=== PATIENT | female | born 1955 | race Caucasian/White ===

== ENCOUNTER 2018-08-10 09:18 | Outpatient (REF) | payer OTHER, SELFPAY ==
--- NOTE | 2018-08-10 08:45 | PAPFT_PTH ---
PATIENT: Farhana Alvarez LOC: [facility] U#:[id number] AGE/SX: 63/F ROOM: RE08/10/[address]: Reema Foley : 1955 BED: DIS: 08/10/2018 SPEC #: [id number] RECD: 08/11/18 12:48 STATUS: MAGGIE REQ #: [id number] TORIN: 08/10/18 08:[address]: Reema Foley DEPT: [facility] Cytology RECD BY: Sowmya Arenas ENTERED: 08/11/18 12:48 SP TYPE: PAPFT OTHR DR: Kiana Collins Tissues: 1 - CX/ENDOCX FOR PAP SMEARS Procedures: PAP THIN PREP/[facility] Screening HPV DNA PROBE Comments: [id number]
== END 2018-08-10 09:38 ==
LOC: NCHCN 09:18
PROVIDERS: PCP Nurse Practitioner Family; Visit Provider Nurse Practitioner Family
DX: Z12.4 Encounter for screening for malignant neoplasm of cervix (principal); Z01.419 Encounter for gynecological examination (general) (routine) without abnormal findings; Z11.51 Encounter for screening for human papillomavirus (HPV)
CPT/HCPCS: 88142; 87624

== ENCOUNTER 2018-08-12 10:14 | Outpatient (REF) | payer OTHER, SELFPAY ==
[2018-08-12 21:08] LABS: Anion Gap 9.1 mmol/L (3-11); BUN 22 mg/dL (7-18); CO2 26.9 mmol/L (21.0-32.0); CREATININE 1.03 mg/dL (0.55-1.02); Calcium 9.4 mg/dL (8.5-10.1); Chloride 104 mmol/L (98-107); Cholesterol 186 mg/dL (50-200); Estimated GFR 53.95 (mL/min/1.73m2); Glucose 96 mg/dL (70-100); HDL Cholesterol 53 mg/dL (40-60); LDL CHOLESTEROL 118 mg/dL (<100); Potassium 4.3 mmol/L (3.5-5.1); Sodium 140 mmol/L (136-145); Triglyceride 80 mg/dL (30-150)
== END 2018-08-12 10:34 ==
LOC: NCHCN 10:14
PROVIDERS: PCP Nurse Practitioner Family; Visit Provider Nurse Practitioner Family
DX: Z00.00 Encounter for general adult medical examination without abnormal findings (principal); Z13.228 Encounter for screening for other metabolic disorders; Z13.220 Encounter for screening for lipoid disorders
CPT/HCPCS: 80048; 80061; 83721

== ENCOUNTER 2018-08-14 01:23 | Outpatient (CLI) | payer OTHER, SELFPAY ==
--- NOTE | 2018-08-14 14:55 | DI.CTLCSR_ITS ---
SYMPTOM/DIAGNOSIS: [facility], Z00.00, FORMER SMOKER CHEST CT LOW DOSE LUNG CANCER SCREENING: A low dose screening protocol was performed. There is severe underlying emphysematous changes. There are two areas, one in each upper lobe, which have a nodular appearance but appear to be at branch points of upper lobe vessels. No suspicious pulmonary nodules are identified. Heart size is normal. Coronary artery calcifications are seen. Degenerative changes are seen in the spine. IMPRESSION: Lung rads, Category 2. Follow up in one year is suggested. Lung-RAD Category: Lung RADS Category 2- Benign Appearance/Behavior
== END 2018-08-14 01:43 ==
PROVIDERS: PCP Nurse Practitioner Family; Visit Provider Nurse Practitioner Family
DX: Z12.2 Encounter for screening for malignant neoplasm of respiratory organs (principal); J43.9 Emphysema, unspecified; Z87.891 Personal history of nicotine dependence; Z00.00 Encounter for general adult medical examination without abnormal findings
CPT/HCPCS: G0297

== ENCOUNTER 2019-02-18 16:59 | Outpatient (REF) | payer OTHER, SELFPAY | END 2019-02-18 17:19 | LOC: NCHCN 16:59 | PROVIDERS: PCP Family Medicine; Visit Provider Family Medicine | DX: R30.0 Dysuria (principal) | CPT/HCPCS: 87077; 87086; 87186 ==

== ENCOUNTER 2019-02-24 14:45 | Outpatient (REF) | payer OTHER, SELFPAY | END 2019-02-24 15:05 | LOC: NCHCN 14:45 | PROVIDERS: PCP Family Medicine; Visit Provider Nurse Practitioner Family | DX: R30.0 Dysuria (principal) | CPT/HCPCS: 87086 ==

== ENCOUNTER 2019-06-30 15:06 | Outpatient (REF) | payer OTHER, SELFPAY ==
[2019-06-30 20:25] LABS: Anion Gap 10.9 mmol/L (3-11); BUN 16 mg/dL (7-18); CO2 25.1 mmol/L (21.0-32.0); CREATININE 0.93 mg/dL (0.55-1.02); Calcium 8.9 mg/dL (8.5-10.1); Chloride 106 mmol/L (98-107); Glucose 100 mg/dL (70-100); HCT 40.2 % (36.0-46.0); HGB 13.8 g/dL (12.0-15.5); Mean Corp. HGB Concentration 34.3 g/dL (32.0-36.0); Mean Corpuscular Hemoglobin 30.6 pg (27.0-33.0); Mean Corpuscular Volume 89.1 fL (80-95); Mean Platelet Volume 9.8 fL (8.0-11.0); NT-proBNP 78 pg/mL; Platelet Count 226 x1000/uL (130-400); RBC 4.51 m/cumm (4.00-5.20); RBC Distribution Width 13.9 % (11.7-14.6); Sodium 142 mmol/L (136-145); TSH (W/Ref FT4) 3.84 uIU/mL (0.36-3.74); White Blood Cell Count 5.69 k/cumm (4.4-10.8)
== END 2019-06-30 15:26 ==
LOC: NCHCN 15:06
PROVIDERS: PCP Family Medicine; Visit Provider Nurse Practitioner Family
DX: R06.09 Other forms of dyspnea (principal); J44.9 Chronic obstructive pulmonary disease, unspecified
CPT/HCPCS: 80048; 85027; 83880; 84439; 84443

== ENCOUNTER 2019-07-01 07:03 | Outpatient (CLI) | payer OTHER, SELFPAY ==
--- NOTE | 2019-07-01 08:50 | DI.RAD_ITS ---
EXAM: XR CHEST 2V PA LATERAL CLINICAL HISTORY: INCREASED FRASER, R06.09, NEW COUGH X 3 WKS, R05, H/O EMPHYSEMA, ? INFECTIOUS PROCESS FINDINGS: The heart is at the upper limits normal in size. There is pleural blunting posteriorly, probably chr onic. There are severe changes of emphysema. Predominantly linear areas of increased radiodensity n oted in lung bases bilaterally consistent with scarring and probably unchanged from prior chest CT of 08/14/2018. No focal consolidation. No significant pleural effusion. IMPRESSION: No evidence of acute intrapulmonary process.
== END 2019-07-01 07:23 ==
PROVIDERS: PCP Family Medicine; Visit Provider Nurse Practitioner Family
DX: R06.09 Other forms of dyspnea (principal); R05 Cough; J43.8 Other emphysema
CPT/HCPCS: 71046

== ENCOUNTER 2019-08-16 09:05 | Outpatient (REF) | payer OTHER, SELFPAY ==
[2019-08-16 21:58] LABS: Calculated LDL 112 mg/dL; Cholesterol 178 mg/dL (<200); Glucose 97 mg/dL (74-106); HDL Cholesterol 52 mg/dL (40-60); Triglyceride 74 mg/dL (<150)
== END 2019-08-16 09:25 ==
LOC: NCHCN 09:05
PROVIDERS: PCP Family Medicine; Visit Provider Nurse Practitioner Family
DX: Z00.00 Encounter for general adult medical examination without abnormal findings (principal); Z13.220 Encounter for screening for lipoid disorders; Z13.1 Encounter for screening for diabetes mellitus
CPT/HCPCS: 80061; 82947

== ENCOUNTER 2019-09-07 01:33 | Outpatient (CLI) | payer OTHER, SELFPAY ==
--- NOTE | 2019-09-07 15:04 | DI.CTLCSR_ITS ---
EXAM: CT CHEST LUNG CANCER SCREEN CLINICAL HISTORY: SCREENING FOR CANCER Z12.9. TECHNIQUE: Imaging protocol: Axial computed tomography images were obtained and coronal and sagittal reformatted images were created and reviewed. FINDINGS: Tracheobronchial tree: Patent where visualized. Mediastinum and Abbie: No dominant adenopathy or fluid collection. Pulmonary parenchyma: Severe emphysematous changes are present. The area of nodularity in the right upper lobe appears stable. No pulmonary nodules are present. No focal consolidating infiltrates are present. There is a calcified granuloma in the left upper lobe. Pleura: No effusion or pneumothorax. Heart: The heart is not dilated. Coronary artery calcifications. No pericardial effusion. Aorta: Atherosclerosis. No aneurysm. Upper abdomen: There is again seen a 1.4 centimeter peripherally calcified lesion in the region of t he tail of the pancreas. This likely reflects a splenic artery aneurysm. Lymph nodes: Within normal limits. Bones:Degenerative changes. IMPRESSION: 1. No suspicious pulmonary nodules. 2. Marked emphysematous changes. 3. Calcified granuloma in the left upper lobe. 4. Lung RADS Cat 2 - Benign Appearance / Behavior: Nodules with a very low likelihood of becoming a c linically active caner due to size or lack of growth DATA REPOSITORY: All CT scans at this facility are submitted to the National Radiology Data Registry (NRDR) Dose Index Registry (DIR) with the [employer] (ACR). RADIATION OPTIMIZATION: All CT scans at this facility use at least one of these dose optimization te chniques: automated exposure control; mA and/or kV adjustment per patient size (includes targeted exa ms where dose is matched to clinical indication); or iterative reconstruction.
== END 2019-09-07 01:53 ==
PROVIDERS: PCP Family Medicine; Visit Provider Nurse Practitioner Family
DX: Z12.2 Encounter for screening for malignant neoplasm of respiratory organs (principal); J98.4 Other disorders of lung; J43.9 Emphysema, unspecified
CPT/HCPCS: G0297

== ENCOUNTER 2019-09-17 00:38 | Outpatient (CLI) | payer OTHER, SELFPAY ==
--- NOTE | 2019-09-17 14:44 | DI.MAMMO_ITS ---
EXAM: MAMMO SCREENING CLINICAL HISTORY: SCREENING Z12.39 TECHNIQUE: Mammograms were interpreted according to the usual protocol including computer analysis w [employer] CAD system, tomosynthesis and C-view imaging. COMPARISON: Current examination is compared with previous examinations including September 2016. FINDINGS: Breasts are of moderate density with fairly symmetrical distribution of fibroglandular tissue. No do minant mass or clumped microcalcification is identified in either breast. Current examination is com pared with previous examinations including September 2016 and there has been no gross interval change in appearance in comparison with the previous studies. IMPRESSION: No specific evidence of malignancy at this time. Routine screening examinations are suggested at yea rly intervals in this age group according the ACS/ACR guidelines. Category 1, breast density categor y B. BI-RADS Cat 1 - Negative Breast Density - Category B - Scattered areas of fibroglandular density
== END 2019-09-17 00:58 ==
PROVIDERS: PCP Family Medicine; Visit Provider Nurse Practitioner Family
DX: Z12.31 Encounter for screening mammogram for malignant neoplasm of breast (principal)
CPT/HCPCS: 77063; 77067

== ENCOUNTER 2021-06-20 08:59 | Outpatient (REF) | payer MEDICARE, SELFPAY ==
[2021-06-20 15:06] LABS: HCT 42.9 % (36.0-46.0); HGB 14.7 g/dL (11.2-15.7); MCH 31.1 pg (27.0-33.0); MCHC 34.3 % (32.0-36.0); MCV 90.7 fL (80-95); MPV 9.7 fL (8.0-11.0); Platelet Count 246 10^3/uL (130-400); RBC 4.73 10^6/uL (3.93-5.22); RDW 13.3 % (11.7-14.6); RDW-SD 44.5 fL; WBC 6.72 10^3/uL (4.4-10.8)
[2021-06-20 15:26] LABS: Anion Gap 9.5 mmol/L (3-11); BUN 15 mg/dL (7-18); CO2 27.5 mmol/L (21.0-32.0); CREATININE 1.1 mg/dL (0.55-1.02); Calcium 9.5 mg/dL (8.5-10.1); Calculated LDL 123 mg/dL (<100); Chloride 106 mmol/L (98-107); Cholesterol 194 mg/dL (<200); Estimated GFR 49.54 (mL/min/1.73m2); Glucose 120 mg/dL (74-106); HDL Cholesterol 48 mg/dL (40-60); Magnesium 1.9 mg/dL (1.8-2.4); Potassium 4.6 mmol/L (3.5-5.1); Sodium 143 mmol/L (136-145); TSH (W/Ref FT4) 2.39 uIU/mL (0.36-3.74); Triglyceride 119 mg/dL (<150)
[2021-06-20 15:50] LABS: NT-proBNP 49 pg/mL (<300)
[2021-06-21 00:34] LABS: Vitamin D 25 Total 18.9 ng/mL (30-100)
== END 2021-06-20 09:00 | disposition home or self-care (01) ==
LOC: NCHCN 08:59
PROVIDERS: PCP Family Medicine; Visit Provider Nurse Practitioner Family
DX: R07.89 Other chest pain (principal); J44.9 Chronic obstructive pulmonary disease, unspecified; R03.0 Elevated blood-pressure reading, without diagnosis of hypertension; M85.88 Other specified disorders of bone density and structure, other site
CPT/HCPCS: 80048; 80061; 82306; 85027; 83036; 83735; 83880; 84443

== ENCOUNTER 2021-07-11 13:01 | Outpatient (REF) | payer MEDICARE, SELFPAY ==
[2021-07-11 14:15] LABS: Anion Gap 10.5 mmol/L (3-11); BUN 21 mg/dL (7-18); CO2 26.5 mmol/L (21.0-32.0); CREATININE 0.9 mg/dL (0.55-1.02); Calcium 9.3 mg/dL (8.5-10.1); Chloride 104 mmol/L (98-107); Glucose 120 mg/dL (74-106); Potassium 4.4 mmol/L (3.5-5.1); Sodium 141 mmol/L (136-145)
== END 2021-07-11 13:02 | disposition home or self-care (01) ==
LOC: NCHCN 13:01
PROVIDERS: PCP Family Medicine; Visit Provider Nurse Practitioner Family
DX: I10 Essential (primary) hypertension (principal)
CPT/HCPCS: 80048

== ENCOUNTER 2022-01-22 15:05 | Outpatient (REF) | payer MEDICARE, SELFPAY ==
[2022-01-22 18:01] LABS: Anion Gap 8.8 mmol/L (3-11); BUN 16 mg/dL (7-18); CO2 27.2 mmol/L (21.0-32.0); CREATININE 1.1 mg/dL (0.55-1.02); Calcium 9.5 mg/dL (8.5-10.1); Chloride 105 mmol/L (98-107); Estimated GFR 49.54 (mL/min/1.73m2); Glucose 115 mg/dL (74-106); Potassium 4.4 mmol/L (3.5-5.1); Sodium 141 mmol/L (136-145)
== END 2022-01-22 15:06 | disposition home or self-care (01) ==
LOC: NCHCN 15:05
PROVIDERS: PCP Family Medicine; Visit Provider Nurse Practitioner Family
DX: I10 Essential (primary) hypertension (principal)
CPT/HCPCS: 80048

== ENCOUNTER 2022-05-15 17:53 | Outpatient (REF) | payer MEDICARE, SELFPAY ==
[2022-05-15 16:04] LABS: ALT 25 U/L (14-59); AST 20 U/L (15-37); Creatine Kinase 50 U/L (26-192); HDL Cholesterol 59 mg/dL (40-60); LDL CHOLESTEROL 74 mg/dL (<100)
== END 2022-05-15 17:54 | disposition home or self-care (01) ==
LOC: NCHCN 17:53
PROVIDERS: PCP Family Medicine; Visit Provider Nurse Practitioner Family
DX: E78.89 Other lipoprotein metabolism disorders (principal); J44.9 Chronic obstructive pulmonary disease, unspecified
CPT/HCPCS: 82550; 83721; 83718; 84450; 84460

== ENCOUNTER 2023-01-07 17:44 | Outpatient (REF) | payer MEDICARE, SELFPAY ==
[2023-01-07 15:59] LABS: Anion Gap 8.8 mmol/L (3-11); BUN 17 mg/dL (7-18); CO2 27.2 mmol/L (21.0-32.0); Calcium 9.8 mg/dL (8.5-10.1); Chloride 106 mmol/L (98-107); Estimated GFR 61.36 (mL/min/1.73m2); Glucose 115 mg/dL (74-106); Potassium 4.7 mmol/L (3.5-5.1); Sodium 142 mmol/L (136-145)
== END 2023-01-07 17:45 | disposition home or self-care (01) ==
LOC: NCHCN 17:44
PROVIDERS: PCP Family Medicine; Visit Provider Nurse Practitioner Family
DX: I10 Essential (primary) hypertension (principal)
CPT/HCPCS: 80048

== ENCOUNTER 2024-01-12 11:30 | Outpatient (REF) | payer MEDICARE, SELFPAY ==
[2024-01-12 15:35] LABS: HCT 43.4 % (36.0-46.0); HGB 14.6 g/dL (11.2-15.7); MCH 30.6 pg (27.0-33.0); MCHC 33.6 % (32.0-36.0); MCV 91 fL (80-95); MPV 9.3 fL (8.0-11.0); Platelet Count 228 10^3/uL (130-400); RBC 4.77 10^6/uL (3.93-5.22); RDW 13.2 % (11.7-14.6); WBC 6.57 10^3/uL (4.4-10.8)
[2024-01-12 16:08] LABS: Hemoglobin A1C 5.3 % (<5.7)
[2024-01-12 16:18] LABS: ALT 24 U/L (14-59); AST 17 U/L (15-37); Albumin 4.2 g/dL (3.4-5.0); Alkaline Phosphatase 81 U/L (46-116); Anion Gap 9.4 mmol/L (3-11); BUN 21 mg/dL (7-18); CO2 27.6 mmol/L (21.0-32.0); CREATININE 1.1 mg/dL (0.55-1.02); Calcium 9.6 mg/dL (8.5-10.1); Calculated LDL 85 mg/dL (<100); Chloride 104 mmol/L (98-107); Cholesterol 170 mg/dL (<200); Estimated GFR 54.39 (mL/min/1.73m2); Glucose 123 mg/dL (74-106); HDL Cholesterol 67 mg/dL (40-60); Potassium 4.8 mmol/L (3.5-5.1); Sodium 141 mmol/L (136-145); Total Protein 7.7 g/dL (6.4-8.2); Triglyceride 90 mg/dL (<150)
[2024-01-12 16:46] LABS: Creatine Kinase 64 U/L (26-192)
== END 2024-01-12 11:31 | disposition home or self-care (01) ==
LOC: NCHCN 11:30
PROVIDERS: PCP Family Medicine; Visit Provider Nurse Practitioner Family
DX: R79.89 Other specified abnormal findings of blood chemistry (principal); J44.9 Chronic obstructive pulmonary disease, unspecified; I10 Essential (primary) hypertension; Z13.1 Encounter for screening for diabetes mellitus
CPT/HCPCS: 80053; 80061; 82550; 85027; 83036

== ENCOUNTER 2025-01-12 11:33 | Outpatient (REF) | payer MEDICARE, SELFPAY ==
[2025-01-12 15:31] LABS: Hemoglobin A1C 5.2 % (<5.7)
[2025-01-12 15:35] LABS: ALT 26 U/L (14-59); AST 15 U/L (15-37); Albumin 4.1 g/dL (3.4-5.0); Alkaline Phosphatase 86 U/L (46-116); Anion Gap 4.6 mmol/L (3-11); BUN 22 mg/dL (7-18); Bilirubin, Total 0.6 mg/dL (0.2-1.0); CO2 30.4 mmol/L (21.0-32.0); Calcium 9.9 mg/dL (8.5-10.1); Calculated LDL 105 mg/dL (<100); Chloride 107 mmol/L (98-107); Cholesterol 207 mg/dL (<200); Estimated GFR 60.61 (mL/min/1.73m2); Glucose 117 mg/dL (74-106); HDL Cholesterol 56 mg/dL (>or=50); Potassium 4.5 mmol/L (3.5-5.1); Sodium 142 mmol/L (136-145); Total Protein 7.1 g/dL (6.4-8.2); Triglyceride 233 mg/dL (<150)
== END 2025-01-12 11:34 | disposition home or self-care (01) ==
LOC: NCHCN 11:33
PROVIDERS: PCP Family Medicine; Visit Provider Physician Assistant Medical
DX: Z13.6 Encounter for screening for cardiovascular disorders (principal); Z13.1 Encounter for screening for diabetes mellitus; I10 Essential (primary) hypertension
CPT/HCPCS: 80053; 80061; 83036

== ENCOUNTER 2025-08-21 11:51 | Emergency (ER) | payer MEDICARE, SELFPAY ==
[2025-08-21] VITALS (7 sets, daily range): BP systolic 100–146; BP diastolic 46–71; PULSE 80–100; RESP 16–26; TEMP 36.9–38.1; O2SAT 93–96
--- NOTE | 2025-08-21 11:45 | DI.RAD_ITS ---
Exam(s) XR PORTABLE CHEST AP EXAM: XR PORTABLE CHEST AP CLINICAL HISTORY: Shortness of breath. TECHNIQUE: 2D digital imaging was performed. COMPARISON: CR XR CHEST 2V PA LATERAL from 07/01/2019 FINDINGS: Single AP portable view. Heart size is upper normal. The mediastinum is not widened. There are COPD findings in the lung stack but no new infiltrates nor pleural effusions. No pulmonary edema. There is platelike atelectasis in the right parahilar region. IMPRESSION: COPD but no acute confluent infiltrates. No pulmonary edema. DATA REPOSITORY: RADIATION DOSE DELIVERED:
--- NOTE | 2025-08-21 11:45 | RT.EKG_ITS ---
APPROVED REPORT Exam: Resting ECG Reason for Exam: Shortness of breath Patient Location: E HR:96 bpm ECG Measurements Heart Rate 96 AXIS OR 126 P 133 QRSd 131 QRS 142 QT 379 T [id number] QTc 478 Conclusion Sinus rhythm...normal P axis, V-rate 60- 99 Atrial premature complex...SV complex w/ short R-R interval Nonspecific intraventricular conduction delay...QRSd >115mS, not LBBB/RBBB Inferior infarct, old...Q >35mS, II III aVF No Occlusion TX
--- NOTE | 2025-08-21 11:51 | ED.GENADUL_ITS ---
Discharge Plan Discharge Details Chief Complaint: Abd Prob Clinical Impression: Aneurysm of splenic artery, Lesion of right lung, Hydronephrosis, Acute and chronic respiratory failure with hypoxia, Ureterolithiasis, Fever, Acute UTI Primary Care Provider: Vane Breaux V ED Provider: Dre Petersen Home Meds and New Rx's Prescriptions: No Action fluticasone propion-salmeterol [Advair Diskus] 1 EACH blister with device 1 puff Inhalation BID albuterol sulfate 2.5 MG/3 ML solution for nebulization 2.5 mg Inhalation Q6H PRN PRN ibuprofen 200 MG capsule 400 mg PO TID PRN PRN loratadine-pseudoephedrine [Claritin-D 12 Hour] 1 EACH tablet extended release 12 hr 1 ea PO BID omeprazole [Prilosec] 20 MG capsule,delayed release(DR/EC) 20 mg PO DAILY furosemide [Lasix] 20 MG tablet 20 mg PO DAILY PRN PRN tiotropium bromide [Spiriva with HandiHaler] 1 PUFF capsule, w/inhalation device 1 puff Inhalation DAILY cholecalciferol (vitamin D3) 1,000 UNITS tablet 1,000 units PO DAILY albuterol sulfate [Ventolin HFA] 200 PUFF HFA aerosol inhaler 2 puff Inhalation Q4H PRN PRN HPI General Date/Time Provider Initiated Documentation: 08/21/25 11:53 . HPI Narrative: MDM This is a former smoker found to have right upper lobe mass versus infiltrate for which he will receive antibiotics in setting of cough fevers. He is also had nausea and diarrhea so we send Legionella antigen. She was found to have right ureteral lithiasis for which we will obtain urinalysis to ensure she is not infected. I attempted to ambulate the patient. Unfortunately she was able to make it several steps and desaturated on her home 2 L into the high 80s. Son who is with her reports that he has been picking her food for the past several days but that she has not eaten anything and that she is quite weak. She has an elevated port score of 101 given her history of renal disease and given her 30 points for neoplastic disease history in the event that her spiculated right upper lobe lung infiltrate is a mass. As a result the risks of hospitalization outweigh the benefits. Patient and son are in agreement. Will obtain results of urinalysis to ensure she is not infected prior to hospitalizing. 3:48 PM Patient found to have moderate leuk esterase and nitrite positive urinalysis concerning for UTI. Will draw 2 sets of blood cultures check lactate and treat with cefepime. I advised patient and her son about her right upper lobe infiltrate versus mass, her kidney stone, and her splenic arterial aneurysm. 5:45 PM I was in touch with [facility] and received accepting physician of Dr. Milton. Patient be transferred via basic group. I updated patient and her son at bedside. Patient is normotensive at time of transfer. Diagnostic interpretations performed by me: Per my independent interpretation chest x-ray shows: No acute cardiopulmonary process. Per my independent interpretation EKG shows: ECG showing sinus rhythm at a rate of 96 interventricular conduction delay. SD and QTc within normal limits. No acute injury pattern. HPI This is a female with a history of chronic obstructive pulmonary disease (COPD) presenting with respiratory distress, fever, diarrhea, nausea, and right-sided abdominal pain. The patient has a history of COPD and is a former smoker, having quit approximately 4 to 5 years ago after a 35-year habit. She typically uses 2 liters of oxygen but was placed on 5 liters via nasal cannula due to fluctuating oxygen requirements. She reports experiencing respiratory distress, which she describes as constant and exacerbated by her current illness. She notes the presence of phlegm in her mouth but reports no cough or chest pain. She has never been treated with steroids for her COPD and has no history of blood clots in her legs or lungs. She was experiencing difficulty with capillary refill in her hands, which was delayed at over 3 seconds, and exhibited some retractions while attempting to breathe. An albuterol treatment and a DuoNeb treatment were administered, which she reported as beneficial. Her last oxygen saturation levels were satisfactory at 98 percent, although she was slightly tachycardic with a heart rate of 110. The patient reports experiencing fever, diarrhea, and nausea for the past week. She has been managing her fever with Apolonia-Two Dot and Tylenol and states that her temperature has not exceeded 100.2 degrees Fahrenheit. Additionally, the patient reports severe right-sided abdominal pain, which has been present for the past 3 days. The pain is localized to the lower right quadrant and lower right back, with the latter being more severe. She has no history of kidney stones. Exam General: Well-appearing in no acute distress speaking in complete sentences. Head: Normocephalic, atraumatic. Eye: Extraocular eye movements intact. No conjunctival injection. No scleral icterus. Ear, nose, mouth, throat: Grossly normal inspection. Normal voice, handling secretions normally. Neck: Trachea midline. Cardiovascular: Well-perfused distal extremities. Respiratory: Nonlabored respiration. Decreased breath sounds bilateral bases. Gastrointestinal: Nondistended abdomen. Right lower quadrant pain and right CVA tenderness. Musculoskeletal: No edema. Moving all 4 extremities spontaneously. Skin: Normal for age and race, grossly normal temperature and turgor. No acute rash. Neurologic: Alert and appropriate, no apparent acute deficits. Psychiatric: Mood and manner are appropriate. Grooming and personal hygiene are appropriate. Related Data Home Medications ?Medication ?Instructions ?Recorded ?Confirmed albuterol sulfate 2.5 mg/3 mL 2.5 mg inhalation Q6H SD N PRN 10/18/15 11/09/15 (0.083 %) solution for nebulization cholecalciferol (vitamin D3) 25 1,000 units PO DAILY 0 10/18/15 11/09/15 mcg (1,000 unit) tablet fluticasone 250 mcg-salmeterol 50 1 puff inhalation BI D 10/18/15 11/09/15 mcg/dose blistr powdr for inhalation (Advair Diskus) furosemide 20 mg tablet (Lasix) 20 mg PO DAILY PRN PRN 10/18/15 11/09/15 ibuprofen 200 mg capsule 400 mg PO TID PRN PRN 11/09/15 loratadine 5 mg-pseudoephedrine ER 1 ea PO BID 6 11/09/15 120 mg tablet,extended release,12hr (Claritin-D 12 Hour) omeprazole 20 mg capsule,delayed 20 mg PO DAILY 11/09/15 release (Prilosec) tiotropium bromide 18 mcg capsule 1 puff inhalation DA DOUG 10/18/15 11/09/15 with inhalation device (Spiriva with HandiHaler) albuterol sulfate 90 mcg/actuation 2 puff inhalation Q 4H PRN PRN 10/19/15 11/09/15 aerosol inhaler (Ventolin HFA) Allergies Allergy/AdvReac Type Severity Reaction Status Date / Time codeine (Codeine) Allergy Unverified 11/09/15 07:37 Penicillins Allergy Unverified 11/09/15 07:37 nicotine (From Nicoderm CQ) AdvReac Severe Unverified 11/09/15 07:37 PFSH All Active Problems (Updated 08/21/25 @ 17:41 by Dre Petersen MD) Acute UTI (Acute) Fever (Acute) Ureterolithiasis (Acute) Acute and chronic respiratory failure with hypoxia (Acute) Hydronephrosis (Acute) Lesion of right lung (Acute) Aneurysm of splenic artery (Acute) Social History Smoking/Tobacco Use Status: Former Tobacco Use Smoking risk assessment performed?: Yes Drug use: Never
[2025-08-21 12:25] LABS: Abs Immature Grans 0.10 10^3/uL (0.0-0.06); HCT 36.7 % (36.0-46.0); HGB 12.1 g/dL (11.2-15.7); Immature Grans % 0.7 %; MCH 29.6 pg (27.0-33.0); MCHC 33.0 % (32.0-36.0); MCV 90 fL (80-95); MPV 9.0 fL (8.0-11.0); Platelet Count 308 10^3/uL (130-400); RBC 4.09 10^6/uL (3.93-5.22); RDW 13.2 % (11.7-14.6); RDW-SD 43.8 fL; WBC 15.04 10^3/uL (4.4-10.8)
[2025-08-21] MEDS: Acetaminophen 500 MG TAB 1000 MG PO (12:27)
[2025-08-21] MEDS: Normal Saline 500 ML IV (12:40)
[2025-08-21 12:48] LABS: Troponin I 15 ng/L (<35)
[2025-08-21 12:50] LABS: ALT 89 U/L (10-49); AST 62 U/L (<34); Albumin 4.2 g/dL (3.2-5.0); Alkaline Phosphatase 138 U/L (46-116); Anion Gap 10.2 mmol/L (3-11); BUN 25 mg/dL (9-23); Bilirubin, Total 0.9 mg/dL (0.2-1.2); CO2 27.8 mmol/L (20.0-31.0); Calcium 9.4 mg/dL (8.3-10.6); Chloride 102 mmol/L (98-107); Glucose 116 mg/dL (74-106); Lipase 37 U/L (<53); Potassium 3.3 mmol/L (3.5-5.1); Sodium 140 mmol/L (136-145); Total Protein 7.5 g/dL (5.7-8.2)
[2025-08-21 12:55] LABS: D-Dimer 2032 ng/mlFEU (<500)
--- NOTE | 2025-08-21 13:01 | DI.CT_ITS ---
Exam(s) CT CHEST PE ABD PELVIS W EXAM: CT CHEST PE ABD PELVIS W CLINICAL HISTORY: Positive dimer back pain. TECHNIQUE: Imaging Protocol: Axial CT angiography was performed with multi- slice acquisition and multi-planar and/or 3D reconstructions. CONTRAST MATERIAL: Intravenous: Omnipaque 350 Contrast volume:98 mL Oral: None COMPARISON: CT CT CHEST LUNG CANCER SCREEN from 09/07/2019 FINDINGS: CHEST: PULMONARY ARTERIES: There are no intra-arterial filling defects to suggest the presence of acute pulmonary emboli. LUNGS: There are advanced COPD emphysematous changes again noted in both lung stack. However, there is now a concerning infiltrate in the medial aspect of the right upper lobe contiguous with the 1st and 2nd thoracic vertebral bodies and measuring 2.7 cm craniocaudal by 1.1 cm wide by 3 cm AP. There does not appear to be obvious destruction of the vertebral bodies..No other infiltrates. There are no pleural effusions. MEDIASTINUM: There is no hilar nor mediastinal adenopathy. CARDIAC: Heart size normal. There is mild thickening of the anterior pericardium consistent with small pericardial effusion. Maximum thickness is 4 mm.Caliber of the thoracic aorta is within normal limits. No evidence of aortic dissection. OSSEOUS: No fractures. ABDOMEN: The abdominal aorta is atherosclerotic but not enlarged. No dissection. Common iliac arteries are also heavily calcified but not enlarged and no dissection. LIVER: There are no focal hepatic lesions nor dilatation of intrahepatic ducts. GALLBLADDER/BILIARY: Gallbladder is mildly distended. No obvious calcified gallstones. No pericholecystic fluid. CBD diameter is upper normal. PANCREAS: No evidence of pancreatic mass. Pancreatic duct diameter is minimally prominent. There are no pancreatic calcifications. There is a 1.2 cm calcified splenic artery aneurysm adjacent to the tail the pancreas. SPLEEN: Spleen is not enlarged. There are no intrasplenic lesions. Splenic and portal veins are patent. KIDNEYS:: There are cysts in both kidneys. On the left side there parapelvic cysts. No solid masses in left kidney. No hydronephrosis. On the right side there is some perinephric streaking. There is also a lateral cortical cyst measuring 4 cm. There is enhancement of the wall of the right renal pelvis and right ureter. The ureter is not dilated there are small calcifications associated with the lower right ureter probably calculus at the UVJ. There are no calculi in the bladder lumen. The right ureter is abnormally dilated to 6 mm size. No solid renal masses. Adrenals: No significant masses.. ABDOMINAL AORTA: Abdominal aorta is not enlarged. LYMPH NODES: There is no retroperitoneal or para-aortic adenopathy. ABDOMINAL WALL/GI: No evidence of significant anterior abdominal wall hernia. No bowel obstruction. PELVIS: LYMPH NODES: There is no intrapelvic nor inguinal adenopathy. GI: No evidence of appendicitis.There is extensive diverticulosis of the sigmoid but no obvious acute diverticulitis. No free fluid. URINARY BLADDER: No calculi nor masses evident REPRODUCTIVE: Uterus and adnexal regions appear age-appropriate. OSSEOUS: No fractures. No significant osseous lesions in the lumbar spine and pelvis. IMPRESSION: 1. No evidence of acute pulmonary emboli nor pulmonary infarction. 2. There is a right upper lobe paraspinal infiltrate which was not present on CT scan of 6 years ago, this measuring 3 x 2.7 x 1.1 cm adjacent to the right-side of the 1st 2nd vertebrae. There does not appear to be obvious vertebral destruction but this will require close follow-up. There are advanced COPD emphysematous changes again noted in both lung stack. 3. In the abdomen the main findings are related to the right kidney where there is hydronephrosis and hydroureter and enhancement of the wall of the renal pelvis and dilated right ureter. There appear to be calculi in the lower right ureter at and above the right ureterovesical junction, these measuring up to 5 mm.. There is some perinephric streaking around the lower pole the right kidney. No calculi nor dilatation of the opposite side. Report called by myself to ER 08/21/2025 at 2:28 p.m. RADIATION DOSE DELIVERED: 230.17 mGy.cm Total DLP DATA REPOSITORY: All CT scans at this facility are submitted to the National Radiology Data Registry (NRDR) Dose Index Registry (DIR) with the [employer] (ACR). RADIATION OPTIMIZATION: All CT scans at this facility use at least one of these dose optimization techniques: automated exposure control; mA and/or kV adjustment per patient size (includes targeted exams where dose is matched to clinical indication); or iterative reconstruction.
[2025-08-21] MEDS: Normal Saline Flush 10 ML SYR IVP (13:16)
[2025-08-21] MEDS: Normal Saline - Diluent 50 ML VIAL IJ (13:25)
[2025-08-21] MEDS: Omnipaque 350 MG/ML 100 ML BTL IJ (13:25)
[2025-08-21 13:35] LABS: Troponin I 18 ng/L (<35)
--- NOTE | 2025-08-21 13:58 | DI.VRAD_ITS ---
PROCEDURE INFORMATION: Exam: XR Chest Exam date and time: 08/21/2025 12:41 PM Age: 70 years old Clinical indication: Shortness of breath TECHNIQUE: Imaging protocol: Radiologic exam of the chest. Views: 1 view. COMPARISON: CT CHEST LUNG CANCER SCREEN 09/07/2019 3:04 PM FINDINGS: Lungs: Severe emphysema. Lungs are well aerated without a focal area of consolidation. Pleural spaces: Unremarkable. No pleural effusion. No pneumothorax. Heart/Mediastinum: Unremarkable. No cardiomegaly. Bones/joints: Unremarkable. IMPRESSION: 1. Severe emphysema. 2. Lungs are well aerated without a focal area of consolidation. Dictated and Authenticated by: Giovanni Stuart MD. Orderin Nicola Erickson MD
[2025-08-21 15:37] LABS: Glucose Negative (Negative)
[2025-08-21 15:47] LABS: C & S Indicated? Yes; WBC >50 HPF (0-5)
[2025-08-21] MEDS: Ketorolac 15 MG/ML VIAL IVP (16:32)
[2025-08-21] MEDS: Doxycycline Hyclate 100 MG CAP PO (17:21)
[2025-08-21] MEDS: Normal Saline 1,000 ML 1000 ML IV (17:24)
[2025-08-21] MEDS: CEFEPIME 2 GM in Normal Saline 100 ML IVPB (17:24)
[2025-08-21 18:24] LABS: COVID-19 PCR Negative (Negative); RSV PCR Negative (Negative)
== END 2025-08-21 18:09 | disposition short-term general hospital (02) ==
PROVIDERS: Emergency Provider Emergency Medicine; PCP Family Medicine
DX: I72.8 Aneurysm of other specified arteries (principal); R91.1 Solitary pulmonary nodule; J96.21 Acute and chronic respiratory failure with hypoxia; N13.2 Hydronephrosis with renal and ureteral calculous obstruction; R50.9 Fever, unspecified; N39.0 Urinary tract infection, site not specified; Z99.81 Dependence on supplemental oxygen; Z87.891 Personal history of nicotine dependence
CPT/HCPCS: 71275; 74177; 80053; 83690; 87040; 87077; 87449; 87637; 93005; 96361; 96374; 96375; 99285; 71045; 81003; 81015; 83605; 84484; 85025; 85379; 87086; 87186; 93010; J0692; J1885; J3490